=== PATIENT | male | born 2000 | race Hispanic/Latino ===

== ENCOUNTER 2019-07-08 21:47 | Emergency (ER) | payer OTHER ==
[~2019-07-08] VITALS: Ht 172.7 cm; Wt 72.4 kg
[2019-07-08] MEDS ORDERED: DECONGESTANT PO (22:00)
[2019-07-08] MEDS ORDERED: GNP10CAP PO (22:00)
[2019-07-08] MEDS ORDERED: COLDLIQ8 PO (22:00)
[2019-07-08 23:00] LABS: INFLUENZA A AMPLIFICATION NEGATIVE (NEGATIVE); INFLUENZA B AMPLIFICATION POSITIVE (NEGATIVE)
[2019-07-08 23:42] VITALS: BP 131/79
== END 2019-07-08 23:43 | disposition home or self-care (01) ==
LOC: M ED 21:47
DX: J10.1 Influenza due to other identified influenza virus with other respiratory manifestations (principal); Z20.89 Contact with and (suspected) exposure to other communicable diseases